=== PATIENT | female | born 1980 | race Caucasian/White ===

== ENCOUNTER 2022-09-09 08:29 | Outpatient (CLI) | payer OTHER ==
[2022-09-09] MEDS ORDERED: Iopamidol-370 76% 500 ML 1 ML ONE (11:39)
== END 2022-09-09 08:30 | disposition home or self-care (01) ==
LOC: RAD 08:29
PROVIDERS: ATTEND Student in an Organized Health Care Education/Training Program
DX: R10.2 Pelvic and perineal pain (principal)
CPT/HCPCS: 51600; 74430

== ENCOUNTER 2023-06-09 10:07 | Outpatient (CLI) | payer OTHER | END 2023-06-09 10:08 | disposition home or self-care (01) | LOC: SCSMRI 10:07 | PROVIDERS: ATTEND Family Medicine | DX: M25.552 Pain in left hip (principal); S73.192A Other sprain of left hip, initial encounter ==